=== PATIENT | female | born 1995 | race Caucasian/White ===

== ENCOUNTER 2023-04-09 10:00 | Emergency (ER) | payer SELFPAY ==
[2023-04-09 11:04] VITALS: BP 118/76; PULSE 77; RESP 18; TEMP 98.2; BMI 25.8
[2023-04-09] MEDS ORDERED: ACETAMINOPHEN 500 MG TABLET (FP) PO ONE (13:15)
[2023-04-09] MEDS ORDERED: ACETAMINOPHEN 500 MG TABLET (FP) ONE ×2 (13:24→15:19)
[2023-04-09 13:40] LABS: BASO % 0.4 % (0-2.0); EOS % 1.5 % (0-4.5); HEMATOCRIT 41.9 % (32.4-45.2); HEMOGLOBIN 13.9 GM/dL (10.7-15.3); LYMPH % 30.1 % (8-40); MCH 30.3 pg (25.7-33.7); MCHC 33.1 g/dl (32.0-36.0); MEAN CELL VOLUME 91.4 fl (80-96); MEAN PLT VOLUME 8.6 fl (7.5-11.1); MONO % 5.9 % (3.8-10.2); NEUT % 62.1 % (42.8-82.8); PLATELET COUNT 239 10^3/uL (134-434); RBC 4.59 M/mm3 (3.60-5.2); RDW 13.2 % (11.6-15.6); WHITE BLOOD COUNT 7.5 K/mm3 (4.0-10.0)
[2023-04-09 13:54] LABS: INR 1.14 (0.83-1.09); PROTHROMBIN TIME (PATIENT) 13.2 SEC (9.7-13.0)
[2023-04-09 13:54] LABS: EPI CELLS 33 /uL (0-25.1); HYALINE CASTS 1 /uL (0-3.1); URINE APPEARANCE CLEAR; URINE BACTERIA 166 /uL (0-1359); URINE BILIRUBIN NEGATIVE (NEGATIVE); URINE COLOR YELLOW; URINE GLUCOSE (UA) NEGATIVE (NEGATIVE); URINE KETONE NEGATIVE (NEGATIVE); URINE LEUK ESTERASE 2+ (NEGATIVE); URINE NITRITE NEGATIVE (NEGATIVE); URINE PROTEIN NEGATIVE (NEGATIVE); URINE RBC 10 /uL (0-23.9); URINE UROBILINOGEN 0.2 mg/dL (0.2-1.0); URINE WBC 46 /uL (0-25.8)
[2023-04-09 14:07] LABS: CHLORIDE 109 mmol/L (98-107); POTASSIUM 3.7 mmol/L (3.5-5.1); SODIUM 140 mmol/L (136-145)
[2023-04-09 14:08] LABS: CALCIUM 9.3 mg/dL (8.5-10.1); GLUCOSE,RANDOM 87 mg/dL (74-106)
[2023-04-09 14:09] LABS: ANION GAP 5 mmol/L (4-13); BLOOD UREA NITROGEN 9.9 mg/dL (7-18); CO2 27 mmol/L (21-32)
[2023-04-09 14:12] LABS: CREATININE 0.7 mg/dL (0.55-1.3); SGOT/AST 16 U/L (15-37); SGPT/ALT 27 U/L (13-61)
[2023-04-09 14:14] LABS: BILIRUBIN,TOTAL 0.3 mg/dL (0.2-1); TOT PROT 8.1 g/dl (6.4-8.2)
[2023-04-09 14:15] LABS: ALK PHOS 88 U/L (45-117)
== END 2023-04-09 15:44 | disposition home or self-care (01) ==
LOC: JER 10:00
DX: R10.2 Pelvic and perineal pain (principal); N89.8 Other specified noninflammatory disorders of vagina; R11.0 Nausea; R14.0 Abdominal distension (gaseous)
CPT/HCPCS: 36415; 76830-TC; 80053; 81003; 84702; 84703; 85025; 85610; 87070; 87077; 87086; 87205; 87491; 87591; 99284-25

== ENCOUNTER 2024-01-23 17:53 | Emergency (ER) | payer OTHER ==
[2024-01-23 18:09] VITALS: BP 108/67; PULSE 71; RESP 16; TEMP 99.1; BMI 24.2
[2024-01-23 19:52] LABS: BASO % 0.6 % (0-2.0); EOS % 2.6 % (0-4.5); HEMOGLOBIN 13.3 GM/dL (10.7-15.3); LYMPH % 25.5 % (8-40); MCH 31.1 pg (25.7-33.7); MEAN CELL VOLUME 91.5 fl (80-96); MEAN PLT VOLUME 8.1 fl (7.5-11.1); MONO % 7.6 % (3.8-10.2); NEUT % 63.7 % (42.8-82.8); PLATELET COUNT 248 10^3/uL (134-434); RBC 4.26 M/mm3 (3.60-5.2); RDW 13.2 % (11.6-15.6); WHITE BLOOD COUNT 8.3 K/mm3 (4.0-10.0)
[2024-01-23 19:54] LABS: PH,URINE 6.5 (5.0-8.0); URINE APPEARANCE CLEAR; URINE BILIRUBIN NEGATIVE (NEGATIVE); URINE COLOR YELLOW; URINE GLUCOSE (UA) NEGATIVE (NEGATIVE); URINE KETONE NEGATIVE (NEGATIVE); URINE LEUK ESTERASE TRACE (NEGATIVE); URINE NITRITE NEGATIVE (NEGATIVE); URINE PROTEIN NEGATIVE (NEGATIVE); URINE UROBILINOGEN 0.2 mg/dL (0.2-1.0)
[2024-01-23 20:07] LABS: HYALINE CASTS 0.13 /uL (0-3.1); URINE BACTERIA 207.8 /uL (0-1359); URINE RBC 3.4 /uL (0-23.9); URINE WBC 17.1 /uL (0-25.8)
[2024-01-23] MEDS ORDERED: CEPHALEXIN MONOHYDRATE 500 MG CAPSULE (UD) ONE (23:56)
[2024-01-23] MEDS: CEPHALEXIN MONOHYDRATE 500 MG CAPSULE (UD) PO ONE (23:58)
== END 2024-01-24 00:26 | disposition home or self-care (01) ==
LOC: JER 17:53
DX: O20.9 Hemorrhage in early pregnancy, unspecified (principal); Z3A.01 Less than 8 weeks gestation of pregnancy
CPT/HCPCS: 36415; 76817-TC; 81003; 84702; 85025; 86850; 86900; 86901; 87086; 87491; 87591; 87661; 99284-25